=== PATIENT | female | born 1955 | race Caucasian/White ===

== ENCOUNTER 2018-03-13 10:15 | Outpatient (REF) | payer OTHER, SELFPAY ==
[2018-03-13 21:06] LABS: ALT 32 U/L (12-78); AST 32 U/L (15-37); Alkaline Phosphatase 94 U/L (46-116); Anion Gap 10.2 mmol/L (3-11); BUN 15 mg/dL (7-18); Bilirubin, Total 0.8 mg/dL (0.2-1.0); CO2 29.8 mmol/L (21.0-32.0); CREATININE 0.79 mg/dL (0.55-1.02); Calcium 9.2 mg/dL (8.5-10.1); Chloride 101 mmol/L (98-107); Cholesterol 132 mg/dL (50-200); Glucose 111 mg/dL (70-100); HDL Cholesterol 51 mg/dL (40-60); LDL CHOLESTEROL 70 mg/dL (<100); Potassium 4.2 mmol/L (3.5-5.1); Sodium 141 mmol/L (136-145); Total Protein 7.4 g/dL (6.4-8.2); Triglyceride 108 mg/dL (30-150)
[2018-03-16 19:14] LABS: Tissue Transglutaminase Ab IgA <1.2 U/mL
== END 2018-03-13 10:35 ==
LOC: NCHCN 10:15
PROVIDERS: PCP Family Medicine; Visit Provider Family Medicine
DX: K52.9 Noninfective gastroenteritis and colitis, unspecified (principal); K31.7 Polyp of stomach and duodenum; I10 Essential (primary) hypertension; E78.5 Hyperlipidemia, unspecified
CPT/HCPCS: 80053; 80061; 83721; 83516

== ENCOUNTER 2019-06-17 16:34 | Outpatient (REF) | payer OTHER, SELFPAY ==
[2019-06-17 21:52] LABS: HCT 44.3 % (36.0-46.0); HGB 14.5 g/dL (12.0-15.5); Mean Corp. HGB Concentration 32.7 g/dL (32.0-36.0); Mean Corpuscular Hemoglobin 29.8 pg (27.0-33.0); Mean Corpuscular Volume 91.2 fL (80-95); Mean Platelet Volume 10.5 fL (8.0-11.0); Platelet Count 433 x1000/uL (130-400); RBC 4.86 m/cumm (4.00-5.20); RBC Distribution Width 13.7 % (11.7-14.6); White Blood Cell Count 13.13 k/cumm (4.4-10.8)
[2019-06-17 22:26] LABS: Vitamin D 25 Total 29.5 ng/ml (30-100)
[2019-06-17 22:28] LABS: ALT 27 U/L (14-59); AST 18 U/L (15-37); Albumin 3.8 g/dL (3.4-5.0); Alkaline Phosphatase 102 U/L (46-116); Anion Gap 9.8 mmol/L (3-11); BUN 14 mg/dL (7-18); Bilirubin, Total 0.7 mg/dL (0.2-1.0); CO2 29.2 mmol/L (21.0-32.0); CREATININE 0.95 mg/dL (0.55-1.02); Calcium 9.1 mg/dL (8.5-10.1); Chloride 101 mmol/L (98-107); Estimated GFR 59.41 (mL/min/1.73m2); Glucose 215 mg/dL (74-106); Potassium 3.6 mmol/L (3.5-5.1); Sodium 140 mmol/L (136-145); TSH (W/Ref FT4) 1.33 uIU/mL (0.36-3.74); Total Protein 7.2 g/dL (6.4-8.2); Vitamin B12 921 pg/mL (193-986)
== END 2019-06-17 16:54 ==
LOC: NCHCN 16:34
PROVIDERS: PCP Family Medicine; Visit Provider Family Medicine
DX: E78.5 Hyperlipidemia, unspecified (principal); F32.9 Major depressive disorder, single episode, unspecified; E04.2 Nontoxic multinodular goiter; R41.3 Other amnesia; I10 Essential (primary) hypertension; Z86.39 Personal history of other endocrine, nutritional and metabolic disease
CPT/HCPCS: 80053; 82306; 85027; 82607; 84443

== ENCOUNTER 2020-11-15 20:38 | Outpatient (REF) | payer OTHER, SELFPAY ==
[2020-11-15 22:39] LABS: COMMENT (LAB VIEW ONLY) 174.05 mg/dL; Microalb ug/mg Crea 6.3 ug/mg Cr
== END 2020-11-15 20:39 | disposition home or self-care (01) ==
LOC: NCHCN 20:38
PROVIDERS: PCP Family Medicine; Visit Provider Family Medicine
DX: E11.9 Type 2 diabetes mellitus without complications (principal)
CPT/HCPCS: 82043; 82570

== ENCOUNTER 2021-08-31 20:06 | Outpatient (REF) | payer MEDICARE, SELFPAY ==
[2021-09-02 14:45] LABS: COVID-19 RT-PCR UVMMC Result Negative (Negative)
== END 2021-08-31 20:07 | disposition home or self-care (01) ==
LOC: NCHCN 20:06
PROVIDERS: PCP Family Medicine; Visit Provider Nurse Practitioner Family
DX: Z20.822 Contact with and (suspected) exposure to COVID-19 (principal); R05.8 Other specified cough
CPT/HCPCS: U0003; U0005

== ENCOUNTER 2021-09-19 11:15 | Outpatient (REF) | payer OTHER, SELFPAY ==
[2021-09-19 16:57] LABS: Anion Gap 9.1 mmol/L (3-11); BUN 12 mg/dL (7-18); CO2 29.9 mmol/L (21.0-32.0); CREATININE 0.9 mg/dL (0.55-1.02); Calcium 8.9 mg/dL (8.5-10.1); Chloride 102 mmol/L (98-107); Glucose 176 mg/dL (74-106); Potassium 4.1 mmol/L (3.5-5.1); Sodium 141 mmol/L (136-145)
== END 2021-09-19 11:16 | disposition home or self-care (01) ==
LOC: NCHCN 11:15
PROVIDERS: PCP Family Medicine; Visit Provider Family Medicine
DX: N17.9 Acute kidney failure, unspecified (principal)
CPT/HCPCS: 80048

== ENCOUNTER 2021-11-16 15:24 | Outpatient (REF) | payer OTHER, SELFPAY ==
[2021-11-16 20:27] LABS: COMMENT (LAB VIEW ONLY) 143.93 mg/dL; Microalb ug/mg Crea 7.9 ug/mg Cr
== END 2021-11-16 15:25 | disposition home or self-care (01) ==
LOC: NCHCN 15:24
PROVIDERS: PCP Family Medicine; Visit Provider Family Medicine
DX: E11.9 Type 2 diabetes mellitus without complications (principal); I10 Essential (primary) hypertension; K21.9 Gastro-esophageal reflux disease without esophagitis; F32.9 Major depressive disorder, single episode, unspecified; Z79.899 Other long term (current) drug therapy
CPT/HCPCS: 82043; 82570

== ENCOUNTER 2022-10-14 20:32 | Outpatient (REF) | payer MEDICARE, SELFPAY ==
[2022-10-14 21:42] LABS: COMMENT (LAB VIEW ONLY) 30.98 mg/dL; Microalb ug/mg Crea 18.7 ug/mg Cr
== END 2022-10-14 20:33 | disposition home or self-care (01) ==
LOC: NCHCN 20:32
PROVIDERS: PCP Family Medicine; Visit Provider Family Medicine
DX: E11.9 Type 2 diabetes mellitus without complications (principal)
CPT/HCPCS: 82043; 82570

== ENCOUNTER 2023-10-07 16:39 | Outpatient (REF) | payer MEDICARE, SELFPAY ==
[2023-10-07 20:38] LABS: HCT 47.1 % (36.0-46.0); HGB 15.7 g/dL (11.2-15.7); MCH 28.1 pg (27.0-33.0); MCHC 33.3 % (32.0-36.0); MCV 84 fL (80-95); MPV 10.5 fL (8.0-11.0); Platelet Count 478 10^3/uL (130-400); RBC 5.59 10^6/uL (3.93-5.22); RDW 12.6 % (11.7-14.6); RDW-SD 38.3 fL; WBC 12.83 10^3/uL (4.4-10.8)
[2023-10-07 21:00] LABS: ALT 29 U/L (14-59); AST 36 U/L (15-37); Albumin 3.6 g/dL (3.4-5.0); Alkaline Phosphatase 77 U/L (46-116); Anion Gap 8.9 mmol/L (3-11); BUN 12 mg/dL (7-18); Bilirubin, Total 1.4 mg/dL (0.2-1.0); CO2 35.1 mmol/L (21.0-32.0); Calcium 9.2 mg/dL (8.5-10.1); Chloride 97 mmol/L (98-107); Estimated GFR 61.36 (mL/min/1.73m2); Glucose 167 mg/dL (74-106); Lipase 61 U/L (16-77); Magnesium 2.1 mg/dL (1.8-2.4); Sodium 141 mmol/L (136-145); Total Protein 7.7 g/dL (6.4-8.2)
[2023-10-07 21:06] LABS: Absolute Basophil Count 0.13 10^3/uL (0.0-0.2); Absolute Lymphocyte Count 4.88 10^3/uL (1.2-3.4); Absolute Monocyte Count 0.77 10^3/uL (0.1-0.8); Absolute Neutrophil Count 7.06 10^3/uL (1.2-6.7); Atypical Lymphocytes % 7 %; Diff Comment Manual Differential
[2023-10-07 21:07] LABS: RBC Morphology Normal
[2023-10-07 21:27] LABS: Potassium 2.6 mmol/L (3.5-5.1)
[2023-10-07 22:04] LABS: Vitamin B12 299 pg/mL (193-986)
== END 2023-10-07 16:40 | disposition home or self-care (01) ==
LOC: NCHCN 16:39
PROVIDERS: PCP Family Medicine; Visit Provider Family Medicine
DX: R63.4 Abnormal weight loss (principal)
CPT/HCPCS: 80053; 83690; 82607; 83735; 84443; 85025

== ENCOUNTER 2023-10-08 11:19 | Outpatient (REF) | payer MEDICARE, SELFPAY ==
[2023-10-08 15:03] LABS: Anion Gap 5.9 mmol/L (3-11); BUN 14 mg/dL (7-18); CO2 37.1 mmol/L (21.0-32.0); CREATININE 1.2 mg/dL (0.55-1.02); Calcium 9.3 mg/dL (8.5-10.1); Chloride 98 mmol/L (98-107); Estimated GFR 49.31 (mL/min/1.73m2); Glucose 195 mg/dL (74-106); Magnesium 2.1 mg/dL (1.8-2.4); Sodium 141 mmol/L (136-145)
[2023-10-08 15:10] LABS: Potassium 2.6 mmol/L (3.5-5.1)
== END 2023-10-08 11:20 | disposition home or self-care (01) ==
LOC: NCHCN 11:19
PROVIDERS: PCP Family Medicine; Visit Provider Family Medicine
DX: I10 Essential (primary) hypertension (principal); R63.4 Abnormal weight loss
CPT/HCPCS: 80048; 83735

== ENCOUNTER 2023-10-10 11:13 | Outpatient (REF) | payer MEDICARE, SELFPAY ==
[2023-10-10 14:00] LABS: Abs Immature Grans 0.02 10^3/uL (0.0-0.06); Absolute Basophil Count 0.09 10^3/uL (0.0-0.2); Absolute Eosinophil Count 0.06 10^3/uL (0.0-0.7); Absolute Lymphocyte Count 3.85 10^3/uL (1.2-3.4); Absolute Monocyte Count 0.64 10^3/uL (0.1-0.8); Absolute Neutrophil Count 7.12 10^3/uL (1.2-6.7); Basophils % 0.8 %; Eosinophils % 0.5 %; HGB 15.4 g/dL (11.2-15.7); Immature Grans % 0.2 %; Lymphocytes % 32.7 %; MCH 27.7 pg (27.0-33.0); MCHC 32.8 % (32.0-36.0); MCV 85 fL (80-95); MPV 10.3 fL (8.0-11.0); Monocytes % 5.4 %; Neutrophils % 60.4 %; Platelet Count 488 10^3/uL (130-400); RBC 5.55 10^6/uL (3.93-5.22); RDW 12.5 % (11.7-14.6); RDW-SD 38.4 fL; WBC 11.78 10^3/uL (4.4-10.8)
[2023-10-10 14:21] LABS: Anion Gap 6.9 mmol/L (3-11); BUN 10 mg/dL (7-18); CO2 32.1 mmol/L (21.0-32.0); Calcium 9.1 mg/dL (8.5-10.1); Chloride 101 mmol/L (98-107); Estimated GFR 61.36 (mL/min/1.73m2); Glucose 222 mg/dL (74-106); Sodium 140 mmol/L (136-145)
[2023-10-10 14:32] LABS: Potassium 2.8 mmol/L (3.5-5.1)
== END 2023-10-10 11:14 | disposition home or self-care (01) ==
LOC: NCHCN 11:13
PROVIDERS: PCP Family Medicine; Visit Provider Internal Medicine
DX: E87.6 Hypokalemia (principal)
CPT/HCPCS: 80048; 85025

== ENCOUNTER 2023-10-13 14:17 | Outpatient (REF) | payer MEDICARE, SELFPAY ==
[2023-10-13 16:06] LABS: Potassium 3.6 mmol/L (3.5-5.1)
== END 2023-10-13 14:18 | disposition home or self-care (01) ==
LOC: NCHCN 14:17
PROVIDERS: PCP Family Medicine; Visit Provider Family Medicine
DX: E87.6 Hypokalemia (principal)
CPT/HCPCS: 84132

== ENCOUNTER 2023-10-14 15:38 | Outpatient (REF) | payer MEDICARE, SELFPAY ==
[2023-10-14 15:32] LABS: C Diff PCR Negative (Negative)
[2023-10-15 11:59] LABS: Campylobacter PCR Negative (Negative); Salmonella PCR Negative (Negative); Shiga Toxin PCR Negative (Negative); Shigella/Enteroinvasive Ecoli Negative (Negative)
== END 2023-10-14 15:39 | disposition home or self-care (01) ==
LOC: NCHCN 15:38
PROVIDERS: PCP Family Medicine; Visit Provider Family Medicine
DX: R19.7 Diarrhea, unspecified (principal)
CPT/HCPCS: 87329; 87493; 87505

== ENCOUNTER 2023-10-17 10:19 | Outpatient (REF) | payer MEDICARE, SELFPAY ==
[2023-10-17 14:29] LABS: Anion Gap 7.7 mmol/L (3-11); BUN 8 mg/dL (7-18); CO2 29.3 mmol/L (21.0-32.0); CREATININE 0.9 mg/dL (0.55-1.02); Calcium 8.6 mg/dL (8.5-10.1); Chloride 107 mmol/L (98-107); Estimated GFR 69.64 (mL/min/1.73m2); Glucose 219 mg/dL (74-106); Potassium 3.6 mmol/L (3.5-5.1); Sodium 144 mmol/L (136-145)
== END 2023-10-17 10:20 | disposition home or self-care (01) ==
LOC: NCHCN 10:19
PROVIDERS: PCP Family Medicine; Visit Provider Family Medicine
DX: E87.6 Hypokalemia (principal)
CPT/HCPCS: 80048

== ENCOUNTER 2023-11-21 12:43 | Outpatient (REF) | payer MEDICARE, SELFPAY ==
--- OUTSIDE RECORDS SUMMARY | 2023-11-21 12:45 | XMS_ITS ---
Author Name Unknown Address [address], [place] [phone] Phone Organization Unknown Address [address] [place] [phone] Phone Care Team Providers Care Fire Fighters Dispatcher Name Role Phone DANA Wren Attending Unavailable BETINA Roper Primary Unavailable Social History Type Status Start Date End Date Code Code Syst em Smoking History Never smoker (Never Smoked) 128650651 SNOMED CT Sex Female Hospital Discharge Instructions Should you have any questions prior to discharge, please contact a member of your healthcare team. If you have left the hospital and have any questions, please contact your primary care physician. Reason For Referral No Data Found Allergies and Adverse Reactions Allergy Substance Reaction Severity Start Date Concern Status Co de Code System AUGMENTIN Vomiting (SNOMED-CT: 862543739) Moderate Active 207682 RxNorm Plan of Treatment BONE DENSITY DEXA SPINE & HIP 3 MM SCREEN BILAT 08/14/2022 BONE DENSITY DEXA SPINE & HIP 3 MM SCREEN BILAT 08/14/2022 BONE DENSITY DEXA SPINE & HIP 2 MM SCREEN BILAT 01/17/2022 X-RAY 09/04/2021 LAB DRAW 15MIN 06/29/2021 PRE-OP COVID-19 TESTING 04/16/2021 PULM OFFICE 04/03/2021 US PELVIC / TV 03/30/2021 Encounters Encounter Diagnosis Start Date Code Code Sys tem Cough, unspecified 06/12/2021 SNOMED-CT Personal Care Team Section Performer Name Performer Role Active Date Inactive Da te
--- OUTSIDE RECORDS SUMMARY | 2023-11-21 12:45 | XMS_ITS ---
Author Name Unknown Address [address] [place] [phone] Phone Organization Unknown Address [address] [place] [phone] Phone Care Team Providers Care Carpet Cleaning Technician Name Role Phone JOCELYNN Mars Attending Unavailable BETINA Roper Primary Unavailable Social History Type Status Start Date End Date Code Code Syst em Smoking History Never smoker (Never Smoked) 222965669 SNOMED CT Sex Female Assessment Section Temporarily Unavailable Hospital Discharge Instructions Should you have any questions prior to discharge, please contact a member of your healthcare team. If you have left the hospital and have any questions, please contact your primary care physician. Reason For Referral No Data Found Allergies and Adverse Reactions Allergy Substance Reaction Severity Start Date Concern Status Co de Code System AUGMENTIN Vomiting (SNOMED-CT: 636452652) Moderate Active 243216 RxNorm Plan of Treatment BONE DENSITY DEXA [...] Diagnosis Start Date Code Code Sys tem Left bundle-branch block, unspecified 05/09/2021 SNOMED-CT Personal Care Team Section Performer Name Performer Role Active Date Inactive Da te
--- OUTSIDE RECORDS SUMMARY | 2023-11-21 12:46 | XMS_ITS ---
Author Name Unknown Address [address] [place] [phone] Phone Organization Unknown Address [address] [place] [phone] Phone Care Team Providers Care Furnace Repair Mechanic Name Role Phone BETINA Roper Attending Unavailable Results BD DXA BONE DENSITY HIP AND SPINE - Completed: 08/14/2022 09:42 LOINC: [place], [place] [address] PACS KILN FIRER HELPER REPORT Patient Name: ROSA KIMBLE MRN: Sex: : Age: [id number] F 1955 67 Account: Accession: Admit: StayType: [id number] 08/14/2022 O/P Ordered: Order ID: Submitted: Ordering Provider: 08/14/2022 09:03 [id number] ARMANDO FOSTER Completed: Technologist: Resulted: 08/14/2022 09:43 DA 08/14/2022 09:44 Study Description: BD DXA BONE DENSITY HIP AND SPINE Study Reason: POSTMENOPAUSAL TECHNIQUE: Performed on a Hologic Horizon W unit. COMPARISON: No exams were available for comparison FINDINGS: Lumbar Spine total T-score: 1.4, in the normal range Hip total T-score: 0.7 Femoral neck yields a T score of: -1.3, in the mildly osteopenic range. IMPRESSION: Normal bone mineral density of the lumbar spine. Mild osteopenia of the hip. World Health Organization criteria for BMD interpretation classify patients: Normal...... T- Score at or above -1.0 Osteopenic... T- Score between -1.0 and -2.5 Osteoporosis... T-Score at or below -2.5 Report Digitally Signed by Cyndie Villanueva on 08/14/2022 09:44 AM EDT MM SCREENING BILAT MAMMO W T MOSHE W CAD - Completed: 08/14/2022 09:34 LOINC: [facility] [place], [place] [address] PACS KILN FIRER HELPER REPORT Patient Name: ROSA KIMBLE MRN: Sex: : Age: [id number] F [id number] 67 Account: Accession: Admit: StayType: [id number] 08/14/2022 O/P Ordered: Order ID: Submitted: Ordering Provider: 08/14/2022 09:03 [id number] ARMANDO FOSTER Completed: Technologist: Resulted: 08/14/2022 09:34 BMM 08/14/2022 09:41 Study Description: MM SCREENING BILAT MAMMO W MILLICENT W CAD Study Reason: Screening TECHNIQUE: 2D digital images with tomosynthesis and CAD COMPARISON: 2013 through 2020 FINDINGS: The breasts are composed of scattered fibroglandular densities, Breast Density category B. No suspicious masses or suspicious microcalcifications are seen. No skin thickening or abnormal axillary lymph nodes are seen. There has been no significant change from prior exams. IMPRESSION: BI-RADS Category 1, Negative mammogram Yearly screening mammography is recommended. Breast Density - Category B, scattered fibroglandular densities. A negative radiographic report should not delay biopsy if a dominant or clinically suspicious mass is present. Up to ten percent of cancers are not identified on mammography. A negative report may reinforce clinical impression. Adenosis and dense breasts may obscure an underlying neoplasm. False positive reports average 6 to 10%. Patient will receive a letter notifying them of these results. Report Digitally Signed by Cyndie Villanueva on 08/14/2022 09:41 AM EDT Social History Type Status Start Date End Date Code Code Syst em Smoking History Never smoker (Never Smoked) 452502452 SNOMED CT Sex Female Hospital Discharge Instructions [...] Co de Code System AUGMENTIN Vomiting (SNOMED-CT: 366378220) Moderate Active 552362 RxNorm Plan of Treatment BONE DENSITY DEXA [...] Diagnosis Start Date Code Code Sys tem Encounter for screening mamm ogram for malignant neoplasm of breast 08/14/2022 SNOMED-CT Personal Care Team Section Performer Name Performer Role Active Date Inactive Da te
--- OUTSIDE RECORDS SUMMARY | 2023-11-21 12:46 | XMS_ITS ---
Author Name Unknown Address [address] [place] [phone] Phone Organization Unknown Address [address] [place] [phone] Phone Care Team Providers Care Diamond Grinder Name Role Phone DANA Wren Attending Unavailable BETINA Roper Primary Unavailable Results GRAM STAIN* - Collect Date/T edna: 06/29/2021 12:52 [facility] ID: [id number] [address] [place] [address], [id number] LOINC: 664-3 Test Value Unit Reference Range Code Code System Flag SOURCE- Sputum Epithelium < 10 / lpf WBC / lpf < 25 / lpf Hist/Alveolar Macr Not seen Yeast Not seen PREDOMINANT ORGANISM Mixed kristopher; no predominant morphology CBC W/ DIFFERENTIAL* - Colle ct Date/Time: 06/29/2021 12:35 [facility] ID: [id number] [address] [place] [address], [address] LOINC: 19035-6 Test Value Unit Reference Range Code Code System Flag WBC 12.76 th/cmm L=5.00 H=10.00 6690-2 LOINC H NEUT % 63.1 % L=40.0 H=80.0 LYMPH % 28.0 % L=10.0 H=50.0 MONO % 6.9 % L=2.0 H=12.0 77062-6 LOINC EOS % 0.9 % L=0.0 H=8.0 BASO % 0.6 % L=0.0 H=3.0 IG % 0.5 % L=0.0 H=1.1 2514-8 LOINC NRBC % 0.0 % L=0.0 H=0.0 00372-1 LOINC NEUT abs count 8.0 th/cmm L=1.6 H=8.4 751-8 LOINC LYMPH abs count 3.6 th/cmm L=1.5 H=4.0 731-0 LOINC MONO abs count 0.9 th/cmm L=0.2 H=1.0 742-7 LOINC EOS abs count 0.1 th/cmm L=0.0 H=0.5 711-2 LOINC BASO abs count 0.1 th/cmm L=0.0 H=0.2 704-7 LOINC IG abs count 0.1 th/cmm L=0.0 H=0.1 83801-0 LOINC NRBC abs count 0.0 mil/cmm L=0.0 H=0.0 69407-9 LOINC RBC 5.16 mil/cmm L=3.90 H=5.40 789-8 LOINC HEMOGLOBIN 16.0 gm/dL L=12.0 H=16.0 718-7 LOINC HEMATOCRIT 48 % L=37 H=47 4544-3 LOINC H MCV 93 fL L=82 H=92 787-2 LOINC H MCH 31.0 pg L=27.0 H=31.0 785-6 LOINC MCHC 33.3 % L=32.0 H=36.0 786-4 LOINC RDW-SD 44.4 fL L=39.0 H=49.0 788-0 LOINC PLATELET COUNT 427 th/cmm L=150 H=450 777-3 LOINC Social History Type Status Start Date End Date Code Code Syst em Smoking History Never smoker (Never Smoked) 282648448 SNOMED CT Sex Female Hospital Discharge Instructions [...] Co de Code System AUGMENTIN Vomiting (SNOMED-CT: 971201586) Moderate Active 244754 RxNorm Plan of Treatment BONE DENSITY DEXA [...] Diagnosis Start Date Code Code Sys tem Chronic cough 06/29/2021 62400712 SNOMED-CT Personal Care Team Section Performer Name Performer Role Active Date Inactive Da te
--- OUTSIDE RECORDS SUMMARY | 2023-11-21 12:46 | XMS_ITS ---
Author Name Unknown Address [address] [place] [phone] Phone Organization Unknown Address [address] [place] [phone] Phone Care Team Providers Care Fundraising Assistant Name Role Phone ALEX Greenberg Attending Unavailable BETINA Roper Primary Unavailable Results XR CHEST 2V PA AND LATERAL - Completed: 09/04/2021 10:16 LOINC: CHEST - 2 VIEWS Compared to 04/02/21. Heart size is normal. The mediastinum is not widened. Lungs are clear with no infiltrates nor pleural effusions. No pneumothorax. No significant osseous findings. IMPRESSION: No acute pulmonary findings. Dictated by: AMANDO ZHANG MD Transcribed by: [facility] [place] 09/04/21/11:52 D Saturday, September 04, 2021 10:28:22 AM [id number] Electronically Reviewed and Signed By: ADONIS ZHANG MD 09/04/21 20:09 Copy for: ALEX Greenberg via fax Copy for: [facility] Social History Type Status Start Date End Date Code Code Syst em Smoking History Never smoker (Never Smoked) 723719250 SNOMED CT Sex Female Hospital Discharge Instructions [...] Co de Code System AUGMENTIN Vomiting (SNOMED-CT: 783995482) Moderate Active 713001 RxNorm Plan of Treatment BONE DENSITY DEXA [...] Diagnosis Start Date Code Code Sys tem Cough 09/04/2021 10868866 SNOMED-CT Personal Care Team Section Performer Name Performer Role Active Date Inactive Da te
--- OUTSIDE RECORDS SUMMARY | 2023-11-21 12:46 | XMS_ITS ---
Author Name Unknown Address [address] [place] [phone] Phone Organization Unknown Address [address] [place] [phone] Phone Care Team Providers Care Gameplay Programmer Name Role Phone BETINA Roper Attending Unavailable Results COMPREHENSIVE METABOLIC PANE L (CMP) - Collect Date/Time: 09/04/2021 10:44 [facility] ID: [id number] [address] [place], [place], [address] LOINC: [address]-4 Test Value Unit Reference Range Code Code System Flag GLUCOSE 173 mg/dL L=70 H=116 2345-7 LOINC H BUN 27 mg/dL L=6 H=25 3094-0 LOINC H CREATININE 1.54 mg/dL L=0.51 H=0.95 2160-0 LOINC H SODIUM SERUM 135 mmol/L L=136 H=145 2951-2 LOINC L POTASSIUM SERUM 3.1 mmol/L L=3.4 H=5.2 2823-3 LOINC L CHLORIDE SERUM 96 mmol/L L=96 H=110 2075-0 LOINC CARBON DIOXIDE (CO2) 26 mmol/L L=22 H=34 2028-9 LOINC ANION GAP 12.9 mmol/L 37237-5 LOINC CALCIUM SERUM 8.4 mg/dL L=8.2 H=10.2 50372-9 LOINC BILIRUBIN TOTAL 0.7 mg/dL L=0.0 H=1.3 1975-2 LOINC ALK. PHOS. 124 U/L L=46 H=116 6768-6 LOINC H SGOT (AST) 69 U/L L=15 H=37 1920-8 LOINC H SGPT (ALT) 46 U/L L=12 H=78 1742-6 LOINC TOTAL PROTEIN 7.0 gm/dL L=6.0 H=8.0 2885-2 LOINC ALBUMIN 2.8 gm/dL L=3.4 H=5.0 1751-7 LOINC L AGE 66 years eGFR (non-Afr.Amer.) 34 mL/min 01155-4 LOINC eGFR (Afr-Greek) 41 mL/min 60292-5 LOINC CBC W/ DIFFERENTIAL* - Colle ct Date/Time: 09/04/2021 10:44 [facility] ID: [id number] [address] [place], [place], [address] LOINC: 89077-9 Test Value Unit Reference Range Code Code System Flag WBC 15.32 th/cmm L=5.00 H=10.00 6690-2 LOINC H NEUT % 43.8 % L=40.0 H=80.0 LYMPH % 49.8 % L=10.0 H=50.0 MONO % 3.9 % L=2.0 H=12.0 47186-5 LOINC EOS % 0.6 % L=0.0 H=8.0 BASO % 1.6 % L=0.0 H=3.0 IG % 0.3 % L=0.0 H=1.1 2514-8 LOINC NRBC % 0.0 % L=0.0 H=0.0 03789-6 LOINC NEUT abs count 6.7 th/cmm L=1.6 H=8.4 751-8 LOINC LYMPH abs count 7.6 th/cmm L=1.5 H=4.0 731-0 LOINC H MONO abs count 0.6 th/cmm L=0.2 H=1.0 742-7 LOINC EOS abs count 0.1 th/cmm L=0.0 H=0.5 711-2 LOINC BASO abs count 0.3 th/cmm L=0.0 H=0.2 704-7 LOINC H IG abs count 0.1 th/cmm L=0.0 H=0.1 84588-5 LOINC NRBC abs count 0.0 mil/cmm L=0.0 H=0.0 79123-6 LOINC RBC 5.83 mil/cmm L=3.90 H=5.40 789-8 LOINC H HEMOGLOBIN 17.7 gm/dL L=12.0 H=16.0 718-7 LOINC H HEMATOCRIT 52 % L=37 H=47 4544-3 LOINC H MCV 90 fL L=82 H=92 787-2 LOINC MCH 30.4 pg L=27.0 H=31.0 785-6 LOINC MCHC 33.8 % L=32.0 H=36.0 786-4 LOINC RDW-SD 47.7 fL L=39.0 H=49.0 788-0 LOINC PLATELET COUNT 346 th/cmm L=150 H=450 777-3 LOINC Atyp lymphs 2+ Smudge cells 1+ Social History Type Status Start Date End Date Code Code Syst em Smoking History Never smoker (Never Smoked) 950637509 SNOMED CT Sex Female Hospital Discharge Instructions [...] Co de Code System AUGMENTIN Vomiting (SNOMED-CT: 995476874) Moderate Active 389601 RxNorm Plan of Treatment BONE DENSITY DEXA [...] Date Code Code Sys tem Cough 09/04/2021 90970222 SNOMED-CT Personal Care Team Section Performer Name Performer Role Active Date Inactive Da te
[2023-11-21 15:06] LABS: COMMENT (LAB VIEW ONLY) 111.66 mg/dL; Microalb ug/mg Crea 51.3 ug/mg Cr
== END 2023-11-21 12:44 | disposition home or self-care (01) ==
LOC: NCHCN 12:43
PROVIDERS: PCP Family Medicine; Visit Provider Family Medicine
DX: E11.9 Type 2 diabetes mellitus without complications (principal)
CPT/HCPCS: 82043; 82570

== ENCOUNTER 2023-12-18 13:41 | Outpatient (REF) | payer MEDICARE, SELFPAY ==
[2023-12-18 16:54] LABS: Abs Immature Grans 0.02 10^3/uL (0.0-0.06); Absolute Basophil Count 0.07 10^3/uL (0.0-0.2); Absolute Eosinophil Count 0.11 10^3/uL (0.0-0.7); Absolute Lymphocyte Count 3.46 10^3/uL (1.2-3.4); Absolute Monocyte Count 0.47 10^3/uL (0.1-0.8); Absolute Neutrophil Count 5.19 10^3/uL (1.2-6.7); Basophils % 0.8 %; Eosinophils % 1.2 %; HCT 46.3 % (36.0-46.0); HGB 14.8 g/dL (11.2-15.7); Immature Grans % 0.2 %; Lymphocytes % 37.1 %; MCH 28.7 pg (27.0-33.0); MCV 90 fL (80-95); MPV 10.1 fL (8.0-11.0); Neutrophils % 55.7 %; Platelet Count 388 10^3/uL (130-400); RBC 5.16 10^6/uL (3.93-5.22); RDW 13.4 % (11.7-14.6); RDW-SD 44.4 fL; WBC 9.32 10^3/uL (4.4-10.8)
[2023-12-18 17:07] LABS: C-Reactive Protein < 0.50 mg/dL (<or=0.5)
[2023-12-18 17:34] LABS: Calculated LDL 128 mg/dL (<100); Cholesterol 236 mg/dL (<200); HDL Cholesterol 57 mg/dL (40-60); Triglyceride 258 mg/dL (<150)
[2023-12-18 17:39] LABS: ESR 12 mm/hr (0-30)
== END 2023-12-18 13:42 | disposition home or self-care (01) ==
LOC: NCHCN 13:41
PROVIDERS: PCP Family Medicine; Visit Provider Family Medicine
DX: E78.5 Hyperlipidemia, unspecified (principal); R51.9 Headache, unspecified
CPT/HCPCS: 80061; 85652; 85025; 86140

== ENCOUNTER 2024-03-04 16:39 | Outpatient (REF) | payer MEDICARE, SELFPAY ==
[2024-03-04 21:19] LABS: Anion Gap 5.8 mmol/L (3-11); BUN 11 mg/dL (7-18); CO2 29.2 mmol/L (21.0-32.0); Calcium 9.4 mg/dL (8.5-10.1); Chloride 102 mmol/L (98-107); Estimated GFR 61.36 (mL/min/1.73m2); Glucose 300 mg/dL (74-106); Potassium 4.2 mmol/L (3.5-5.1); Sodium 137 mmol/L (136-145)
== END 2024-03-04 16:40 | disposition home or self-care (01) ==
LOC: NCHCN 16:39
PROVIDERS: PCP Family Medicine; Visit Provider Family Medicine
DX: E83.52 Hypercalcemia (principal)
CPT/HCPCS: 80048

== ENCOUNTER 2024-12-07 15:18 | Outpatient (REF) | payer MEDICARE, SELFPAY ==
[2024-12-07 21:09] LABS: COMMENT (LAB VIEW ONLY) 61.95 mg/dL; Microalb ug/mg Crea 37.8 ug/mg Cr
== END 2024-12-07 15:19 | disposition home or self-care (01) ==
LOC: NCHCN 15:18
PROVIDERS: PCP Family Medicine; Visit Provider Family Medicine
DX: E11.9 Type 2 diabetes mellitus without complications (principal)
CPT/HCPCS: 82043; 82570

== ENCOUNTER 2025-03-28 19:21 | Outpatient (REF) | payer MEDICARE, SELFPAY ==
[2025-03-28 21:33] LABS: HCT 52.3 % (36.0-46.0); HGB 16.7 g/dL (11.2-15.7); MCH 29.6 pg (27.0-33.0); MCHC 31.9 % (32.0-36.0); MCV 93 fL (80-95); MPV 10.2 fL (8.0-11.0); Platelet Count 423 10^3/uL (130-400); RBC 5.64 10^6/uL (3.93-5.22); RDW 13.1 % (11.7-14.6); RDW-SD 44.8 fL; WBC 14.97 10^3/uL (4.4-10.8)
[2025-03-28 21:57] LABS: ALT 31 U/L (14-59); AST 30 U/L (15-37); Albumin 3.7 g/dL (3.4-5.0); Alkaline Phosphatase 132 U/L (46-116); Anion Gap 5.6 mmol/L (3-11); BUN 13 mg/dL (7-18); Bilirubin, Total 0.8 mg/dL (0.2-1.0); CO2 30.4 mmol/L (21.0-32.0); Calcium 9.6 mg/dL (8.5-10.1); Calculated LDL 71 mg/dL (<100); Chloride 102 mmol/L (98-107); Cholesterol 168 mg/dL (<200); Estimated GFR 69.20 (mL/min/1.73m2); Glucose 172 mg/dL (74-106); HDL Cholesterol 54 mg/dL (>or=50); Potassium 5.6 mmol/L (3.5-5.1); Sodium 138 mmol/L (136-145); Total Protein 8.1 g/dL (6.4-8.2); Triglyceride 216 mg/dL (<150)
[2025-03-28 22:03] LABS: Hemoglobin A1C 7.1 % (<5.7)
== END 2025-03-28 19:22 | disposition home or self-care (01) ==
LOC: NCHCN 19:21
PROVIDERS: PCP Family Medicine; Visit Provider Family Medicine
DX: E78.5 Hyperlipidemia, unspecified (principal); I10 Essential (primary) hypertension; E11.9 Type 2 diabetes mellitus without complications; Z13.0 Encounter for screening for diseases of the blood and blood-forming organs and certain disorders involving the immune mechanism
CPT/HCPCS: 80053; 80061; 85027; 83036